=== PATIENT | female | born 1995 | race Two or more races ===

== ENCOUNTER 2021-02-06 11:48 | Outpatient (CLI) | payer BC | END 2021-02-06 23:59 | disposition home or self-care (01) | LOC: MRI 11:48 | PROVIDERS: ATTEND Family Medicine | DX: S93.491A Sprain of other ligament of right ankle, initial encounter (principal); R60.0 Localized edema; M25.471 Effusion, right ankle; X58.XXXA Exposure to other specified factors, initial encounter; Y93.89 Activity, other specified; Y92.89 Other specified places as the place of occurrence of the external cause; Y99.8 Other external cause status | CPT/HCPCS: 73718-TC; 73721-TC ==